=== PATIENT | male | born 1960 | race Caucasian/White ===

== ENCOUNTER → 2021-09-14 | Outpatient (CLI) | payer MEDICARE, OTHER ==
[~2021-09-14] VITALS: Ht 185 cm; Wt 99.0 kg
[~2021-09-14] MED LIST: CATHETER FLUSH 10 ML SYR IVP PRN; REGADENOSON 0.4 MG/5 ML SYR (LEXISCAN) IV ONE
[2021-09-14 08:02] VITALS: BP 150/98
--- NOTE | 2021-09-14 10:21 | Cardiology Stress Test Report ---
Stress Test Report Date of Procedure/Referring: Date of Procedure: September 14, 2021 PCP David Sauer DO Admitting Physician Indications: CP Baseline Vital Signs Vital Signs Date Time Temp Pulse Resp B/P (MAP) Pulse Ox O2 Delivery O2 Flow Rate FiO2 09/14/21 08:02 87 20 150/98 (115) 95 Room Air Summary: Patient receive a resting and stress dose of Myoview, images were acquired and reviewed in the short axis view, horizontal long axis view and vertical long axis view. TID: 1 SSS: 3 SDS: 3 EF: 68 1. Diaphragmatic attenuation with mild decrease uptake at the mid to apical inferior wall with mild reversibility, no significant ischemia or infarction on SPECT images 2. Normal left ventricular size, ejection fraction 68% Copy Copies To 1: DAVID SAUER BASHAR J MD September 14, 2021 10:21
== END ==
LOC: CARD 06:52
PROVIDERS: ATTEND Internal Medicine
DX: R07.89 Other chest pain (principal)
CPT/HCPCS: 78452; 93017; A9502